=== PATIENT | male | born 1960 | race Caucasian/White ===

== ENCOUNTER → 2016-07-26 | Outpatient (CLI) | payer BC ==
[~2016-07-26] MED LIST: ASPI81TA28 PO; CHOL20007 PO; CYAN500T PO; FENO1TAB24 PO; GLIP-197 PO; HYDR25TA4 PO; KETO10TA PO; LIRA18IN SC; METF-841 PO; OMEG10007 PO; OXYC-57 PO; QUIN40TA18 PO; SIMV40TA2 PO
--- NOTE | 2016-07-26 14:56 | DIAGNOSTIC IMAGING REPORT ---
RIGHT SHOULDER MRI HISTORY: Right shoulder pain. TECHNIQUE: Multiplanar multisequence MRI of the right shoulder was performed without contrast. COMPARISON STUDY: Right shoulder 12/16/2015. FINDINGS: AC joint: Moderate AC joint arthrosis demonstrated by joint space narrowing, small amount of joint fluid, and osteophytes. Rotator cuff: High-grade partial undersurface tear of the subscapularis tendon with associated fatty atrophy of the muscle belly. Small linear partial tears at the bursal surface of the distal supraspinatus tendon with associated mild fatty atrophy of the muscle belly. The infraspinatus and teres minor tendons are intact. No fluid within the subacromial/subdeltoid bursa. Labrum: The superior labrum appears intact. There is abnormal signal with a truncated appearance to the anterior inferior labrum, inferior labrum, and posterior labrum consistent with complex tear. There is also focal periosteal stripping at the anterior inferior glenoid best seen on image 17 of 25. This is also likely a result of the labral tear. Biceps tendon: The long head of the biceps tendon is medially subluxed proximally and demonstrates a partial tear. This is likely a result of the partial tear of the subscapularis tendon. Bones: No fracture or dislocation. Areas of cystic change within the lateral humeral head is likely chronic. Cartilage: Mild cartilage thinning within the superior glenoid. Miscellaneous: No significant joint effusion. There are 2 small intra-articular loose bodies within the subcoracoid recess with the largest measuring 5 mm. IMPRESSION: 1. High-grade partial undersurface tear of the subscapularis tendon. There is associated medial subluxation of the proximal long head of the biceps tendon which is also partially torn. 2. A few small linear partial tears along the bursal surface of the distal supraspinatus tendon. 3. Mild fatty atrophy of the muscle bellies of the supraspinatus and subscapularis. 4. Labral tears as described above including focal periosteal stripping at the anterior inferior glenoid. 5. A few small intra-articular loose bodies at the subcoracoid recess Electronically signed by: Cory Coker M.D. 07/26/2016 2:55 PM Dictated Date/Time: 07/26/2016 2:43 PM
== END | disposition home or self-care (01) ==
LOC: C.MRIBC 13:20
PROVIDERS: ATTEND Orthopaedic Surgery
DX: M25.511 Pain in right shoulder (principal)

== ENCOUNTER → 2016-11-01 | Day surgery (SDC) | payer BC ==
[2016-10-29 12:07] VITALS: Ht 182.9 cm; Wt 125.5 kg
[~2016-11-01] VITALS: Ht 182.9 cm; Wt 125.5 kg
[~2016-11-01] MED LIST changes: +ATROPINE SULFATE 0.1 MG/ML 5ML SYR IV PRN; +BUPIVACAINE/EPINEPHRINE 0.25% 1:200,000 30 ML VIAL ONE; +CEFAZOLIN 3000 MG/65 ML D5W IV SCH; +DEXAMETHASONE SOD INJ 4 MG/ML VIAL ONE; +DiphenhydrAMINE HCL 50 MG/ML VIAL ONE; +EpHEDrine SULFATE INJ 50 MG/ML AMP IV PRN; +EpINEphrine INJ 1MG/ML AMP 1 MG/ML AMP ONE; +FENTANYL CITRATE INJ 50 MCG/1 ML 2 ML VIAL IV PRN; +FENTANYL CITRATE INJ 50 MCG/1 ML 2 ML VIAL ONE; +LACTATED RINGER'S 1000ML 1,000 ML IV SCH; +LIDOCAINE HCL 2% 2 ML VIAL (20MG/ML) ONE; +MIDAZOLAM HCL 1 MG/ML 2ML VIAL ONE; +ONDANSETRON INJ 2 MG/ML 2 ML VIAL IV PRN; +ONDANSETRON INJ 2 MG/ML 2 ML VIAL ONE; +OXYCODONE/ACETAMINOPHEN 5-325 TAB PO PRN; +PROPOFOL IV EMULSION 10 MG/ML 20 ML VIAL IV ONE; +ROPIVACAINE 0.5% 5 MG/ML 30 ML VIAL ONE; +SODIUM CHLORIDE 0.9% 1000ML 1,000 ML IV SCH
--- NOTE | 2016-11-01 07:08 | History & Physical Bridge - [place] ---
H&P Re-Evaluation Bridge Note: I have examined the patient, reviewed the History & Physical and in the interval since the performance of the History & Physical I have noted the following changes of clinical significance: No changes noted
--- NOTE | 2016-11-01 10:33 | [facility] Post Operative Brief Note ---
Immediate Operative Summary Operative Date Nov 01, 2016. Pre-Operative Diagnosis Right Shoulder Full Thickness Rotator Cuff Tear Post-Operative Diagnosis Same Procedure(s) Performed Right Shoulder Arthroscopy, Subacromial Decompression, Debridement, Open Biceps Tenodesis Surgeon Dr. Abad Altitude Chamber Technician Surgeon(s) Marisabel Mchugh PA-C Estimated Blood Loss 5 ml Findings as above Specimens None Complication(s) None Disposition Recovery Room / PACU
--- NOTE | 2016-11-01 11:01 | Discharge Instructions-SurgCtr ---
Discharge Instructions Date of Service Nov 01, 2016. Visit Reason for Visit: Right Shoulder Full Thickness Rotator Cuff Tear Discharge Discharge Diagnosis / Problem: SAME ABOVE Discharge Goals Goal(s): Decrease discomfort, Improve function Medications Stopped Medications Name(s): METFORMIN- STOPPED 3 DAYS, FISH OIL STOPPED 1 WEEK AGO Activity Recommendations Activity Limitations: as noted below Lifting Limitations: until after follow-up appointment Exercise/Sports Limitations: until after follow-up appointment Shower/Bathe: tomorrow Anesthesia . Post Anesthesia Instructions: If you have had General Anesthesia or IV Sedation: * Do not drive today. * Resume driving when surgeon permits. * Do not make important decisions or sign legal documents today. * Call surgeon for: 1. Temperature elevations greater than 101 degrees F. 2. Uncontrollable pain. 3. Excessive bleeding. 4. Persistent nausea and vomiting. 5. Medication intolerance (nausea, vomiting or rash). * For nausea and vomiting use only clear liquids such as: tea, soda, bouillon until nausea subsides, then gradually increase diet as tolerated. * If you have any concerns or questions, call your surgeon's office. If physician is unavailable and it is an emergency, call 911 or go to the nearest emergency room. . Instructions / Follow-Up Instructions / Follow-Up MEDICATIONS: * Resume previous medications unless instructed otherwise by your surgeon. * Always take pain medication on a full stomach or with food to avoid upset stomach. * Do not drink alcohol or drive while taking narcotics. * Ibuprofen or Tylenol may be taken if narcotic not needed. SPECIAL CARE INSTRUCTIONS: __ None _X_ Keep extremity elevated and iced x 48 hours; apply ice 20-30 minutes 8-10 times/day. May remove at night. _X_ Sling (WEAR NEEDED FOR COMFORT) __24 hrs/day __ Remove at night __ Shoulder Immobilizer __ 24 hrs/day __ Remove at night _X_ Dressing __ Maintain until seen in office, may shower with plastic over site _X_ Remove dressings in 24-48 hours and then may shower _X_ Cover incisions with band-aids after showering _X_ Do not remove steri-strips Call physician if chills or temperature rises above 102 degrees or pain unrelieved by prescribed pain medications at . . Diet Recommendations Home Diet: no limitations Procedures Procedures Performed: Right Shoulder Arthroscopy, Subacromial Decompression, Debridement, Open Biceps Tenodesis Pending Studies Studies pending at discharge: no Work Instructions Return To Work: after follow-up Lifting Limitations: no more than 10 pounds Medical Emergencies . Who to Call and When: Medical Emergencies: If at any time you feel your situation is an emergency, please call 911 immediately. . Non-Emergent Contact Non-Emergency issues call your: Primary Care Provider Call Non-Emergent contact if: you have a fever, temperature is above 101.5 . . "Provider Documentation" section prepared by Jonathan Mchugh. .
[2016-11-01 11:50] VITALS: TEMP 36.2
--- NOTE | 2016-11-01 11:51 | OPERATIVE REPORT ---
DATE OF OPERATION: 11/01/2016 PREOPERATIVE DIAGNOSIS: Biceps tendinopathy of the right shoulder with possible upper border subscapularis tear. 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 PROCEDURES: Right shoulder diagnostic arthroscopy with extensive debridement, acromioplasty and open subpectoral biceps tenodesis. SURGEON: Dr. Celso Abad. NEWS ASSISTANT: Norbert Mchugh PA-C, whose assistance was necessary for positioning the arm and helping with instrumentation. ANESTHESIA: General with a right interscalene nerve block. COMPLICATIONS: None. CONDITION: Stable to PACU. INDICATIONS: Magy is a pleasant 56-year-old male who presented to my office with a year long history of right shoulder pain. He does not recall any trauma. Lot of his pain was located anteriorly. Very positive bear hug test. MRI did show mild arthritis, but fraying of the biceps tendon. He elected to undergo arthroscopy. DESCRIPTION OF PROCEDURE: On 11/01/2016, he arrived at [facility] for the above procedure. He was seen in the preoperative holding area and the operative extremity was identified and signed. He was given a preoperative antibiotic and a right interscalene nerve block. He was taken back to the operating room, laid on the table in supine position and put under general anesthesia. He was then put into the beachchair position. The right shoulder was prepped and draped in sterile fashion. Time-out was done and the patient and operative extremity was properly identified. A scope was introduced in the posterior portal. Diagnostic arthroscopy showed grade 4 chondral changes throughout the entire posterior half of the humeral head. There was a lot more arthritis than I was expecting to find. There was some flaking of the cartilage as well. There was much less arthritis on the glenoid, may be some grade 2 and 3 changes posteriorly. There was degenerative tearing throughout the posterior labrum. The biceps tendon was frayed on the anterior aspect. There was some minor fraying of the upper border of the subscapularis, but it was grossly intact. The remainder of the rotator cuff was intact. An anterior portal was made. A shaver was used to do a debridement of the intraarticular structures. A minor chondroplasty was done of the humeral head. The biceps tendon was arthroscopically tenotomized. The scope was placed in the anterior portal and through the posterior portal, a shaver was used to do a debridement of the posterior labrum and any additional chondroplasty. Multiple pictures were taken. The scope was then placed in the subacromial space. A lateral portal was made. A shaver was used to do a complete subacromial and subdeltoid bursectomy. An ablator was used to tease the coracoacromial ligament off the undersurface of the acromion and a 5-0 kortney was used to complete an acromioplasty of a Bigliani type 2 acromion. A shaver was used to remove any excess debris. The bursal side of the rotator cuff was examined extensively without evidence of tear. Arthroscopic instruments were removed from the shoulder. Attention was turned to an open biceps tenodesis. A small incision was made over the inferior border of the pec major. Dissection was taken down through the fascia and the long head of the biceps tendon was delivered out of the wound. The tendon was then whipstitched at the anticipated level of tenodesis and the remainder of the tendon was discarded. A 6-mm hole was drilled in the bicipital groove and the biceps tendon was tenodesed with an Arthrex biceps button that was passed through the posterior cortex in a tension slide technique to deliver the tendon into the 6-mm hole. This gave good fixation. The wound was then irrigated and closed with 3-0 Vicryl and running 3-0 Monocryl. Steri-strips were placed. Portal sites were closed with 3-0 nylon. He was then placed in a soft dressing and a regular arm sling. He was then extubated, [facility] and taken to the postanesthesia care unit in stable condition. He tolerated the procedure well. I attest to the content of the Intraoperative Record and any orders documented therein. Any exception s are noted below.
--- NOTE | 2016-11-01 12:17 | Anesthesia Progress Nt - [facility] ---
Anesthesia Post Op Note Date & Time Nov 01, 2016 at 12:16 Vital Signs Pain Intensity: 2.0 Vital Signs Past 12 Hours Date Time Temp Pulse Resp B/P (MAP) Pulse Ox O2 Delivery O2 Flow Rate FiO2 11/01/16 11:50 36.2 77 18 151/80 (103) 98 Room Air 11/01/16 11:31 116/60 11/01/16 11:30 76 18 97 11/01/16 11:30 36.2 73 18 116/60 96 Room Air 11/01/16 11:30 78 18 11/01/16 11:26 134/60 11/01/16 11:26 134/60 11/01/16 11:25 73 19 98 11/01/16 11:25 73 19 98 11/01/16 11:25 75 19 11/01/16 11:25 75 19 11/01/16 11:21 106/71 11/01/16 11:21 106/71 11/01/16 11:20 82 16 100 11/01/16 11:20 82 16 100 11/01/16 11:20 78 16 11/01/16 11:20 78 16 11/01/16 11:16 123/70 11/01/16 11:16 123/70 11/01/16 11:15 79 19 11/01/16 11:15 80 19 100 11/01/16 11:15 79 19 11/01/16 11:15 80 19 100 11/01/16 11:11 116/62 11/01/16 11:11 116/62 11/01/16 11:10 74 15 11/01/16 11:10 73 15 100 11/01/16 11:10 73 15 100 11/01/16 11:10 74 15 11/01/16 11:06 119/66 11/01/16 11:06 119/66 11/01/16 11:05 73 14 100 11/01/16 11:05 73 14 100 11/01/16 11:05 73 14 11/01/16 11:05 73 14 11/01/16 11:01 119/66 11/01/16 11:01 119/66 11/01/16 11:00 78 13 11/01/16 11:00 78 13 11/01/16 11:00 79 13 100 11/01/16 11:00 79 13 100 11/01/16 10:56 109/74 11/01/16 10:56 109/74 11/01/16 10:56 109/74 11/01/16 10:55 79 16 100 11/01/16 10:55 79 16 100 11/01/16 10:55 80 16 11/01/16 10:55 80 16 11/01/16 10:55 80 16 11/01/16 10:55 79 16 100 11/01/16 10:53 123/70 11/01/16 10:53 123/70 11/01/16 10:53 123/70 11/01/16 10:51 181/113 11/01/16 10:51 181/113 11/01/16 10:51 181/113 11/01/16 10:50 83 19 11/01/16 10:50 36.1 85 18 123/70 100 Mask 5 11/01/16 10:50 19 11/01/16 10:50 83 19 11/01/16 10:50 83 19 11/01/16 10:50 19 11/01/16 10:50 19 11/01/16 09:23 0 11/01/16 09:18 73 99 11/01/16 09:18 73 11/01/16 09:17 72 11/01/16 09:17 72 99 11/01/16 09:16 74 11/01/16 09:15 75 145/89 (107) 11/01/16 09:14 188/102 11/01/16 09:11 78 11/01/16 09:06 68 11/01/16 09:01 69 11/01/16 08:56 74 11/01/16 08:51 69 11/01/16 08:46 67 11/01/16 08:41 81 11/01/16 08:36 72 11/01/16 08:31 67 0 11/01/16 07:16 37.0 69 22 124/80 (95) 97 Room Air Notes Mental Status: alert / awake / arousable, participated in evaluation Pt Amnestic to Procedure: Yes Nausea / Vomiting: adequately controlled Pain: adequately controlled Airway Patency, RR, SpO2: stable & adequate BP & HR: stable & adequate Hydration State: stable & adequate Anesthetic Complications: no major complications apparent The patient is a 56 y/o male with a h/o MICHAEL, HTN, DM and obesity s/p Right Shoulder Arthroscopy, Subacromial Decompression, Debridement, Open Biceps Tenodesis with Dr. Abad. On the way to the OR soon after the Cefazolin was started in preop, the patient's face and neck became red/flushed and he complained of feeling warm. He denied shortness of breath and his vital signs were stable. No hives or swelling noted. He was given 25mg IV Benadryl and the redness quickly resolved. The patient was induced without problems and the rest of the case was uneventful. The patient did well in recovery with no issues or complaints. The patient and his were informed of the reaction to what was likely due to Cefazolin and it was added to the patient's allergy list. The patient was instructed to go to the ED with any chest pain, shortness of breath, lightheaded or dizziness, hives, rash, swelling, difficulty breathing or with any other concerns. He understands and agrees. The patient also has a h/o MICHAEL and uses CPAP. He was instructed to use his CPAP whenever he thinks he may fall asleep even if he is in the recliner for at least the next 24 hours and while he is on pain medication. He understands and agrees.
[2016-11-01 12:20] VITALS: BP 116/69; PULSE 69; O2SAT 96
== END | disposition home or self-care (01) ==
LOC: X.SURG 06:52
PROVIDERS: ATTEND Orthopaedic Surgery
DX: M75.21 Bicipital tendinitis, right shoulder (principal); M19.011 Primary osteoarthritis, right shoulder; G47.33 Obstructive sleep apnea (adult) (pediatric); E66.9 Obesity, unspecified; E11.65 Type 2 diabetes mellitus with hyperglycemia; E78.5 Hyperlipidemia, unspecified; I10 Essential (primary) hypertension; F32.9 Major depressive disorder, single episode, unspecified; Z83.3 Family history of diabetes mellitus; Z83.71 Family history of colonic polyps; Z82.49 Family history of ischemic heart disease and other diseases of the circulatory system; Z87.891 Personal history of nicotine dependence; Z79.82 Long term (current) use of aspirin; Z79.899 Other long term (current) drug therapy; Z79.84 Long term (current) use of oral hypoglycemic drugs

== ENCOUNTER → 2017-05-10 | Outpatient (CLI) | payer BC ==
[~2017-05-10] MED LIST changes: -ATROPINE SULFATE 0.1 MG/ML 5ML SYR IV PRN; -BUPIVACAINE/EPINEPHRINE 0.25% 1:200,000 30 ML VIAL ONE; -CEFAZOLIN 3000 MG/65 ML D5W IV SCH; -DEXAMETHASONE SOD INJ 4 MG/ML VIAL ONE; -DiphenhydrAMINE HCL 50 MG/ML VIAL ONE; -EpHEDrine SULFATE INJ 50 MG/ML AMP IV PRN; -EpINEphrine INJ 1MG/ML AMP 1 MG/ML AMP ONE; -FENTANYL CITRATE INJ 50 MCG/1 ML 2 ML VIAL IV PRN; -FENTANYL CITRATE INJ 50 MCG/1 ML 2 ML VIAL ONE; -KETO10TA PO; -LACTATED RINGER'S 1000ML 1,000 ML IV SCH; -LIDOCAINE HCL 2% 2 ML VIAL (20MG/ML) ONE; -MIDAZOLAM HCL 1 MG/ML 2ML VIAL ONE; -ONDANSETRON INJ 2 MG/ML 2 ML VIAL IV PRN; -ONDANSETRON INJ 2 MG/ML 2 ML VIAL ONE; -OXYC-57 PO; -OXYCODONE/ACETAMINOPHEN 5-325 TAB PO PRN; -PROPOFOL IV EMULSION 10 MG/ML 20 ML VIAL IV ONE; -ROPIVACAINE 0.5% 5 MG/ML 30 ML VIAL ONE; -SODIUM CHLORIDE 0.9% 1000ML 1,000 ML IV SCH
--- NOTE | 2017-05-10 13:39 | DIAGNOSTIC IMAGING REPORT ---
R UPPER EXT JOINT WITHOUT CLINICAL HISTORY: 57 years-old Male presenting with RIGHT SHOULDER PAIN and limited range of motion, prior shoulder surgery October 2016 biceps repair and rotator cuff repair. TECHNIQUE: Multisequence, multiplanar MR imaging of the right shoulder was performed without the use of intravenous contrast. IV contrast: None. COMPARISON: 07/26/2016. FINDINGS: Localizer images: Unremarkable. Postsurgical changes of long head of the biceps tenodesis. Short head of the biceps tendon intact. Cystic change noted at the greater tuberosity at the footplate of the supraspinatus, suggesting chronic impingement. Bony edema also noted at the acromioclavicular joint associated with degenerative change. No other sites of bony edema or marrow signal abnormality. Focal articular cartilage thinning in the posterior superior glenoid (series 8 image 12; series 10 image 13). This appears to be near full-thickness. Remainder of articular cartilage preserved. Mild superior subluxation of the humeral head with resultant narrowing of the acromiohumeral interval. Postsurgical changes of the superior labrum. The remainder of the labrum appears intact. Abnormal signal intensity within the critical zone and insertional fibers of the supraspinatus, which has progressed since the prior exam. Partial undersurface tear of the insertional fibers may be present. Increased signal intensity of the insertional fibers of the infraspinatus without convincing evidence of a focal tear, likely tendinosis. Teres minor tendon intact. The transverse ligament of the subscapularis tendon is not intact, which may in part be postsurgical change. The majority of the proximal insertional fibers of the subscapularis tendon are intact though demonstrating increased signal intensity and linear intrasubstance fluid signal, possibly laminar tear. Trace shoulder effusion. IMPRESSION: 1. Postsurgical changes of long head of biceps tenodesis and postsurgical changes of the superior labrum. 2. Near full-thickness focal articular cartilage defect in the posterior superior glenoid. 3. Partial undersurface tear of the insertional fibers of the skull supraspinatus suspected. 4. Tendinosis of the infraspinatus. 5. Postsurgical changes of the subscapularis with tendinosis versus laminar type tear of the proximal and surgical fibers. Electronically signed by: Ray Lazaro M.D. 05/10/2017 1:37 PM Dictated Date/Time: 05/10/2017 1:15 PM
== END | disposition home or self-care (01) ==
LOC: C.MRIBC 12:00
PROVIDERS: ATTEND Orthopaedic Surgery
DX: M25.511 Pain in right shoulder (principal); M24.111 Other articular cartilage disorders, right shoulder; M75.91 Shoulder lesion, unspecified, right shoulder